=== PATIENT | male | born 1975 | race Caucasian/White ===

== ENCOUNTER 2017-06-22 10:58 | Inpatient (IN) | payer OTHER ==
[~2017-06-22] VITALS: Ht 175.3 cm; Wt 71.0 kg
--- NOTE | ~2017-06-22 | CR72 ---
[facility] A Service of [facility] RADIOLOGY TEXT RESULTS PATIENT: EDIL VICKERS LOCATION: [facility] 330-01 : [birth year] UNIT #: [id number] AGE: [address]: Isaias Russell MD SEX: M ORDER DR: [id number] [facility] [address] [place], [place] [address] [id number] E MR#: [id number] Acc #: [id number] NAME: EDIL VICKERS : 1975 SEX: M STUDY DATE/TIME: 06/22/2017 12:08 UNIT: [facility] ROOM: STUDY DESCRIPTION: CR Chest Single View Portable Attending Physician: William Nugent M.D. Ordering Physician: William Nugent M.D. Primary Care Physician: No Primary Care Physician MEDICAL IMAGING REPORT This report is preliminary unless electronic signature is present EXAM Portable chest. HISTORY Shortness of breath onset today. TECHNIQUE Single AP view of the chest was obtained. FINDINGS A single AP view of the chest shows both lungs to be clear. The heart is normal in size. The mediastinal contour is normal. No significant bone abnormalities are seen. IMPRESSION Normal single view chest. Dictated by... Edil Clemons M.D. THIS IS AN ELECTRONICALLY VERIFIED REPORT Edil Clemons M.D. at 06/27/2017 2:13 PM ELVIRA/suellen TD: 06/22/2017 17:20 JOB #: [id number] MEDICAL IMAGING REPORT Page 1 of 1 COPY
--- NOTE | ~2017-06-22 | DS ---
Unit #: [id number] #: [id number] Patient: EDIL VICKERS [id number] [address] [address] [id number] I MR#: [id number] NAME: EDIL VCIKERS ROOM: 330 Age: 41 Sex: M Admission Date: 06/22/2017 : 1975 Discharge Date: 06/24/2017 Attending Physician: Isaias Russell M.D. Primary Care Physician: No Primary Care Physician DISCHARGE SUMMARY DISCHARGE DIAGNOSES 1. Urinary tract infections. 2. Psychosis. The patient is a 41-year-old male admitted 06/22/2017 with psychosis. He was noted to have tox screen positive for amphetamines. The patient had apparently taken himself to a bank and asked for someone to contact the police. He was then brought to the emergency department. CT of the head shows no acute findings. UA shows possible urinary tract infection and the patient does complain of some dysuria. Patient received an IV dose of Rocephin and will be discharged on Bactrim. The patient does remain frankly psychotic. He has episodes where he threatens to eat people but has otherwise been nonviolent. Given medical stability the patient is being discharged to [facility] at this time. DISCHARGE MEDICATIONS 1. Bactrim DS one p.o. b.i.d. x5 days. 2. Ativan 1 mg p.o. b.i.d. 3. Zyprexa 10 mg p.o. b.i.d. FOLLOWUP The [facility] has [facility] Appropriate followup can be determined upon discharge from that facility. Dictated by... Brigette Bowden/nathaniel TD: 06/26/2017 09:43 JOB #: [id number] Unit #: [id number] #: [id number] Patient: EDIL VICKERS DISCHARGE SUMMARY Page 1 of 1 X Isaias Russell MD DISCHARGE SUMMARY
--- NOTE | ~2017-06-22 | EKG ---
PATIENT: EDIL VICKERS UNIT #: [id number] Ventricular Rate: 96 BPM Atrial Rate: 96 BPM P-R Interval: 138 ms QRS Duration: 92 ms Q-T Interval: 394 ms QTC Calculation(Bezet): 497 ms P Kiana: 73 degrees Calculated R Kiana: 39 degrees Calculated T Kiana: 54 degrees Diagnosis Line: Normal sinus rhythm Diagnosis Line: nondiagnostic Q waves inferolateral leads Diagnosis Line: Borderline ECG Diagnosis Line: No previous ECGs available Diagnosis Line: Confirmed by YADI TEE MD ([id number]) on 06/22/2017 Diagnosis Line: 6:57:02 PM INTERPRETING MD: NAY MUNOZ
--- NOTE | ~2017-06-22 | CO ---
Unit #: [id number] #: [id number] Patient: EDIL VICKERS [id number] [facility] [address] [place], [place] [address] [id number] I MR#: [id number] NAME: EDIL VICKERS ROOM: 330 Age: 41 Sex: M Admission Date: 06/22/2017 : 1975 Attending Physician: Isaias Russell M.D. Consultation Date: 06/23/2017 CONSULTATION REPORT REASON FOR CONSULTATION Psychosis, altered mental status, and hearing voices. HISTORY OF PRESENT ILLNESS Mr. Lea is a 41-year-old male, seen in room 330, bed 1 on 06/23/2017 at [facility]. The patient reported racing thoughts, hearing voices. The patient reported history of amphetamine abuse. The patient currently denied any suicidal or homicidal ideation, but still guarded, paranoid, mood lability, sad and depressed. The patient's vital signs; temperature 97.9, 58, 99/56 and oxygen saturation 99%. PAST PSYCHIATRIC HISTORY Remarkable for history of previous treatment, details unknown at this time; long history of hearing voices before using substances according to the patient. MEDICAL HISTORY Remarkable for history of hepatitis C. MEDICATION HISTORY The patient is on no medication at this time except IV fluids. FAMILY HISTORY AND SOCIAL HISTORY The patient has a poor support system. No history of abuse. History of substance abuse as mentioned above. Drug of choice, amphetamine. REVIEW OF SYSTEMS Complete review of systems is unremarkable. MENTAL STATUS EXAMINATION General appearance, the patient dressed casually in hospital attire. Attention span and concentration, poor. Speech is rapid in rate, pressured. Oriented in time, place, and person. Mood and affect, labile. Thought process, circumstantial. Thought content, guarded, paranoid, passive SI, but denied any plans. Recent and remote memory, fair to slightly impaired. Language, fair. Fund of knowledge, fair. Insight and judgment, fair to slightly impaired. DIAGNOSES Psychiatric: Bipolar mood disorder, recurrent, severe, depressed, F31.9; psychosis, not otherwise specified, F29.0; amphetamine use disorder, severe, F15.20. Secondary diagnosis: Deferred. Unit #: [id number] #: [id number] Patient: EDIL VICKERS Medical diagnosis: None. Stressors: Psychosocial stressors. ASSESSMENT/PLAN 1. Supportive psychotherapy and psychoeducation provided to the patient. 2. Educated about benefits and side effects of medication and course and prognosis of illness. 3. Recommending to start Zyprexa 10 mg b.i.d. for above-mentioned symptom one dose now and Ativan 1 mg twice daily. We will continue to follow. Please feel free to call if any question, telephone #[phone]. Dictated by... Brigette Rivera/bobby TD: 06/24/2017 14:21 JOB #: [id number] CONSULTATION REPORT Page 1 of 1 X Micah Lennon MD X CONSULTATION REPORT
--- NOTE | ~2017-06-22 | CT71 ---
[facility] A Service of [facility] RADIOLOGY TEXT RESULTS PATIENT: EDIL VICKERS LOCATION: [facility] 330 : [birth year] UNIT #: [id number] AGE: [address]: Isaias Russell MD SEX: M ORDER DR: [id number] [facility] [address] [facility]. [place], [place] [address] [id number] I MR#: [id number] Acc #: [id number] NAME: EDIL VICKERS : 1975 SEX: M STUDY DATE/TIME: 06/22/2017 14:40 UNIT: A PCU ROOM: 330 STUDY DESCRIPTION: CT Head Wo Contrast Attending Physician: Maura Collins M.D. Ordering Physician: William Nugent M.D. Primary Care Physician: Primary Care Physician No MEDICAL IMAGING REPORT This report is preliminary unless electronic signature is present EXAM CT head INDICATIONS Confusion for 1 day. Not responding to commands. Temporary encephalopathy. COMPARISON None available. TECHNIQUE Axial noncontrast images were obtained from the skull base to the vertex. This CT exam was performed with one or more of the following radiation dose reduction techniques: automatic exposure control, adjustment of mA and/or kV according to patient size, and iterative reconstruction. FINDINGS Ventricular size and configuration are normal. There is no evidence of acute infarct or hemorrhage. There are no extraaxial fluid collections. No mass lesion or mass effect is seen. There are no skull fractures. IMPRESSION Normal noncontrast head CT. Dictated by... Lisandro Pollard M.D. THIS IS AN ELECTRONICALLY VERIFIED REPORT Lisandro Pollard M.D. at 06/23/2017 8:21 AM [facility]/to TD: 06/22/2017 22:23 JOB #: [id number] [facility] A Service [facility] RADIOLOGY TEXT RESULTS PATIENT: EDIL VICKERS LOCATION: [facility] 330 : [birth year] UNIT #: [id number] AGE: [address]: Isaias Russell MD SEX: M ORDER DR: MEDICAL IMAGING REPORT Page 1 of 1 COPY
--- NOTE | ~2017-06-22 | HP ---
Unit #: [id number] #: [id number] Patient: EDIL VICKERS [id number] [address] [facility] [place], [place] [address] [id number] E MR#: [id number] NAME: EDIL VICKERS ROOM: Age: 41 Sex: M Admission Date: 06/22/2017 : 1975 Attending Physician: William Nugent M.D. HISTORY AND PHYSICAL CHIEF COMPLAINT Altered mental status. HISTORY OF PRESENT ILLNESS The patient is a 41-year-old male with a past medical history of hepatitis C who presented to the emergency department for evaluation of the above. History is obtained from chart review and discussion with ER staff due to the patient's altered mental status. Apparently, the patient went to a bank asking for the police. He was subsequently agitated and combative and was brought to the emergency department for further evaluation. In the emergency department, initial pulse and blood pressure were 107 and 139/98, respectively. The patient required security intervention due to aggressive behaviors. Ultimately, he received 20 mg of Geodon, as well as 2 mg of [address]. A CT of the head shows nothing acute. Laboratory is notable for potassium of 2.2. He was given 40 mEq of potassium IV in the emergency department. He is being admitted to [facility] for evaluation and further treatment. PAST MEDICAL HISTORY The patient has two other emergency department visits both of which were for abdominal pain in July 2015. The ER triage sheet states that he has a history of hepatitis C. PAST SURGICAL HISTORY Unknown. SOCIAL HISTORY Unobtainable due to mental status. FAMILY HISTORY Unobtainable due to mental status. REVIEW OF SYSTEMS Unobtainable due to altered mental status. PHYSICAL EXAMINATION VITAL SIGNS: Temperature is 97.5, pulse 105, respirations 20, blood pressure 139/98, and oxygen saturation is 92% on room air. GENERAL: Patient is a male who is lethargic. He was previously agitated and combative. HEENT: Head is atraumatic. Mucous membranes are moist. NECK: Supple. Trachea is midline. Unit #: [id number] #: [id number] Patient: EDIL VICKERS CARDIOVASCULAR: Regular rate and rhythm. LUNGS: Clear to auscultation bilaterally with no increased work of breathing. ABDOMEN: Soft and nontender with bowel sounds present in all four quadrants. EXTREMITIES: Nontender with no pedal edema. NEUROLOGIC: Patient is lethargic. He was moving all extremities. PSYCHIATRIC: Patient was initially agitated and combative. SKIN: Skin of examined areas is warm and dry. DIAGNOSTIC STUDIES LABORATORY: Complete blood count notable for hemoglobin of 16.2. Comprehensive metabolic panel notable for potassium of 2.2, glucose 140, BUN and creatinine 24 and 1.1, respectively, AST and ALT are 71 and 65, respectively, total bilirubin 2.1 with 0.7 direct and 1.4 indirect. Alcohol level is 5. Urine toxicology screen is positive for amphetamine. Urinalysis notable for 1+ leukocyte esterase, 2+ protein, 1+ ketones, and 3+ blood with 50-100 red blood cells and 10-25 white blood cells. IMAGING: CT of the head shows nothing acute. CARDIOLOGY: EKG shows normal sinus rhythm with a rate of 96 beats per minute. ASSESSMENT The patient is a 41-year-old male with: 1. Altered mental status secondary to #2. 2. Amphetamine abuse/intoxication. 3. Hypokalemia with a potassium of 2.2. The patient received 40 mEq of potassium IV in the emergency department. 4. Possible urinary tract infection. The patient has 1+ leukocyte esterase with 10-25 white blood cells. 5. History of hepatitis C. PLAN 1. Admit to intermediate level. 2. N.p.o. until awake and passes bedside swallow. 3. Normal saline at 125 mL/hour. 4. Check magnesium level. 5. Potassium/magnesium protocol. 6. TSH, B12, and folate. 7. Neuro checks. 8. Sitter. 9. Consult Dr. Lennon regarding altered mental status. 10. Check CPK. 11. Urine culture and sensitivity on urine in the lab. 12. Rocephin 1 gram IV daily pending results of urine culture. 13. Repeat labs in the morning including magnesium and CPK. 14. SCDs for DVT prophylaxis. 15. Additional workup and consultants based on above. 1. Dictated by Maura Collins M.D. AW/brad TD: 06/22/2017 16:54 Unit #: [id number] #: [id number] Patient: EDIL VICKERS JOB #: [id number] HISTORY AND PHYSICAL Page 1 of 1 X Maura Collins MD HISTORY AND PHYSICAL
[~2017-06-22 10:58] MED LIST: BENTYL20 M1 PO; CIPRO PO; FLAGYL250 M1 PO; NO MEDICATIONS; ZOFRAN ODT4 MG/UDTAB PO
[2017-06-22 12:18] LABS: BASOPHIL% 0.5 % (0-2.5); DIFF IND NO; EOSINOPHIL% 0.3 % (0.0-7.0); HEMATOCRIT 47.9 % (38.0-50.0); HEMOGLOBIN 16.2 gm/dL (13.0-16.0); LYMPHOCYTE# 1.7 X10e3 (1.0-3.5); LYMPHOCYTE% 21.6 % (17.0-45.0); MEAN CELL VOLUME 90.6 FL (83-96); MEAN CORPUSCULAR HEMOGLOBIN 30.6 PG (28-34); MEAN CORPUSCULAR HGB CONC 33.7 g/dL (30-36); MEAN PLATELET VOLUME 10.1 FL (6.5-11.5); MONOCYTE# 0.9 X10e3 (0-1.0); MONOCYTE% 11.3 % (3.0-12.0); NEUTROPHIL# 5.3 X10e3 (1.5-7.1); NEUTROPHIL% 66.3 % (40-75); PLATELET COUNT 193 X10e3 (140-420); RED BLOOD COUNT 5.28 X10e (3.90-5.60)
[2017-06-22 12:45] LABS: ALBUMIN SERUM 4.5 g/dL (3.5-5.0); BILIRUBIN, DIRECT 0.7 mg/dL (0.0-0.2); BILIRUBIN,INDIRECT 1.4 mg/dL (0.0-0.9); BILIRUBIN,TOTAL 2.1 mg/dL (0.2-2.0); BUN/CREATININE RATIO 21.81; CALCIUM SERUM 9.3 mg/dL (8.4-10.2); CREATININE SERUM 1.1 mg/dL (0.6-1.4); GLOM FILT RATE Estimated 83.5 mL/min (>60); PROTEIN TOTAL SERUM 7.9 g/dL (6.0-8.3)
[2017-06-22 12:49] LABS: POTASSIUM 2.2 mmol/L (3.5-5.1)
[2017-06-22 12:53] LABS: URINE SOURCE CLEAN CATCH
[2017-06-22 13:03] LABS: URINE APPEARANCE CLOUDY; URINE BLOOD 3+ (NEG); URINE COLOR DK YELLOW; URINE GLUCOSE NEG (NEG); URINE KETONE 1+ (NEG); URINE LEUKOCYTE ESTERASE 1+ (NEG); URINE NITRATE NEG (NEG); URINE PH 5.5 (5-8); URINE PROTEIN 2+ (NEG); URINE SPECIFIC GRAVITY 1.031 (1.003-1.035)
[2017-06-22 13:06] LABS: CULTURE INDICATED? YES; URINE BACTERIA AUWI NEG (NEGATIVE)
[2017-06-22 13:27] LABS: AMPHETAMINE POS (NEG); BARBITURATES NEG (NEG); BENZODIAZEPINES NEG (NEG); COCAINE NEG (NEG); MARIJUANA NEG (NEG); OPIATES NEG (NEG); TRICYCLIC ANTIDEPRESSANTS NEG (NEG); U METHADONE NEG (NEG)
[2017-06-22 13:36] LABS: URBCS1 AUWI 50-100 /[HPF] (0-2); URINE BILIRUBIN POS (NEG); URINE SQUAMOUS EPITHELIAL CELL OCCAS /[HPF]
[2017-06-22 17:11] LABS: FOLATE (FOLIC ACID) >23.3 ng/mL (>5.8)
[2017-06-23 06:04] LABS: HEMATOCRIT 44.5 % (38.0-50.0); HEMOGLOBIN 14.9 gm/dL (13.0-16.0); MEAN CELL VOLUME 91.5 FL (83-96); MEAN CORPUSCULAR HEMOGLOBIN 30.7 PG (28-34); MEAN CORPUSCULAR HGB CONC 33.5 g/dL (30-36); MEAN PLATELET VOLUME 10.8 FL (6.5-11.5); RED BLOOD COUNT 4.86 X10e (3.90-5.60); RED CELL DISTRIBUTION WIDTH 14.2 % (11.0-15.5); WHITE BLOOD COUNT 6.7 X10e3 (4.0-10.5)
[2017-06-23 07:39] LABS: ALBUMIN SERUM 3.6 g/dL (3.5-5.0); BILIRUBIN,TOTAL 2.7 mg/dL (0.2-2.0); CALCIUM SERUM 8.8 mg/dL (8.4-10.2); CREATININE SERUM 0.6 mg/dL (0.6-1.4); GLOM FILT RATE Estimated 125.8 mL/min (>60); POTASSIUM 4.3 mmol/L (3.5-5.1); PROTEIN TOTAL SERUM 6.5 g/dL (6.0-8.3)
== END 2017-06-24 13:52 | DRG 689 ==
LOC: CED 10:58 → CEDOF 15:30 → CED 15:43 → C3A PCU 20:47 → CEDOF 20:47 → C3A PCU 06-23 07:43
PROVIDERS: Emergency Medicine; Family Medicine
DX: N39.0 Urinary tract infection, site not specified (principal); G92 Toxic encephalopathy; F15.120 Other stimulant abuse with intoxication, uncomplicated; F29 Unspecified psychosis not due to a substance or known physiological condition; E87.6 Hypokalemia; F31.9 Bipolar disorder, unspecified; Z86.19 Personal history of other infectious and parasitic diseases; T43.621A Poisoning by amphetamines, accidental (unintentional), initial encounter; Y92.009 Unspecified place in unspecified non-institutional (private) residence as the place of occurrence of the external cause
CPT/HCPCS: 36415; 51702; 70450; 71010; 80048; 80053; 80076; 80307; 81003; 82550; 82607; 82746; 82947; 83735; 84443; 85025; 85027; 87086; 93005; 96365; 96372; 96375; 99285; G0480; J0696; J2250; J3475; J3486

== ENCOUNTER 2017-06-23 11:21 | Inpatient (IN) | payer OTHER ==
[~2017-06-23] VITALS: Ht 175.3 cm; Wt 74.8 kg
--- NOTE | ~2017-06-23 | PN ---
Unit #: [id number] #: [id number] Patient: EDIL VICKERS [id number] [facility] [address] [place] [address] [id number] I MR#: [id number] NAME: EDIL VICKERS ROOM: P180 Age: 41 Sex: M Admission Date: 06/24/2017 : 1975 Attending Physician: Micah Lennon M.D. Admitting Physician: Micah Lennon M.D. Primary Care Physician: Primary Care Physician Lien HARKINS NOTES DATE OF SERVICE: 06/25/2017 DISCUSSION Mr. Lea is a 41-year-old male, seen on 06/25/2017. The patient interviewed, chart reviewed, and obtained information from nursing staff. The patient was compliant and cooperative. Mood is sad, dysphoric, withdrawn, isolative, guarded, and paranoid. REVIEW OF SYSTEMS Complete review of systems unremarkable. MENTAL STATUS EXAMINATION General appearance, the patient dressed casually. Attention span and concentration, fair. Oriented in place and person. Mood and affect, labile. Speech, monotone. Thought process, concrete. The patient reported hallucination, anxiety, isolative, guarded, and paranoid. Recent and remote memory, poor. Insight and judgment, poor. DIAGNOSES Amphetamine use disorder, severe; mood disorder, not otherwise specified; and psychosis, not otherwise specified. ASSESSMENT AND PLAN Advised to continue with current medication and therapeutic protocol. If needed, consider further adjustment of medication. Dictated by... Brigette Rivera/bobby TD: 06/26/2017 13:33 JOB #: [id number] Unit #: [id number] #: [id number] Patient: EDIL VICKERS PROGRESS NOTES Page 1 of 1 X Micah Lennon MD PROGRESS NOTE
--- NOTE | ~2017-06-23 | PN ---
Unit #: [id number] #: [id number] Patient: EDIL VICKERS [id number] [facility] [address] [place] [address] [id number] I MR#: [id number] NAME: EDIL VICKERS ROOM: P180 Age: 41 Sex: M Admission Date: 06/24/2017 : 1975 Attending Physician: Micah Lennon M.D. Admitting Physician: Micah Lennon M.D. Primary Care Physician: Primary Care Physician Lien HARKINS NOTES DATE OF SERVICE: 06/27/2017 DISCUSSION Edil Miller is a 41-year-old male, seen on 06/27/2017. The patient interviewed, chart reviewed, and obtained information from nursing staff. The patient was compliant and cooperative. Mood labile. The patient sad, dysphoric, flat affect, guarded. The patient still reporting having withdrawal symptoms. The patient's vital signs; temperature 98.4, heart rate 68, and blood pressure 115/77. The patient is still seclusive and isolative. REVIEW OF SYSTEMS Complete review of systems unremarkable. MENTAL STATUS EXAMINATION General appearance, the patient dressed casually. Attention span and concentration, fair. Oriented in place and person. Mood and affect, labile. Speech, monotone. Thought process, concrete. The patient denied any thoughts of harming self or others, but isolative, argumentative, disrespectful, guarded, and rude. DIAGNOSES Amphetamine use disorder, severe and mood disorder, not otherwise specified. ASSESSMENT AND PLAN Advised to continue with current medication and therapeutic protocol. If needed, consider further adjustment of medication. Dictated by... Brigette Rivera/bobby TD: 06/27/2017 19:50 JOB #: [id number] Unit #: [id number] #: [id number] Patient: EDIL VICKERS [place] SHAHANA NOTES Page 1 of 1 X Micah Lennon MD PROGRESS NOTE
--- NOTE | ~2017-06-23 | PN ---
Unit #: [id number] #: [id number] Patient: EDIL VICKERS [id number] [facility] [address] [place] [address] [id number] I MR#: [id number] NAME: EDIL VICKERS ROOM: P180 Age: 41 Sex: M Admission Date: 06/24/2017 : 1975 Attending Physician: Micah Lennon M.D. Admitting Physician: Micah Lennon M.D. Primary Care Physician: Primary Care Physician Lien HARPER PROGRESS NOTES DATE 06/26/2017 DISCUSSION Edil Vickers is a 41-year-old male, seen on 06/26/2017. The patient interviewed, chart reviewed, and obtained information from the nursing staff. The patient continues to report having withdrawal symptoms, isolative, flat affect. The patient's vital signs, 98.1, 71, and 101/64. The patient denied any other complaints. REVIEW OF SYSTEMS Complete review of systems unremarkable. MENTAL STATUS EXAMINATION General appearance: Patient dressed casually. Attention span and concentration, fair. Oriented in time, place, and person. Mood and affect, labile. Speech, monotone. Thought process, concrete. The patient denied any thoughts of harming self or others or any psychotic symptoms. Recent and remote memory, poor. Insight and judgment, poor. DIAGNOSES 1. Amphetamine use disorder, severe. 2. Mood disorder, NOS. ASSESSMENT/PLAN Advised to continue with the current medication and therapeutic protocol, and if needed consider further adjustment of medication. Dictated by... Brigette Rivera/kayli TD: 06/27/2017 09:36 JOB #: [id number] Unit #: [id number] #: [id number] Patient: EDIL VICKERS PROGRESS NOTES Page 1 of 1 X Micah Lennon MD PROGRESS NOTE
--- NOTE | ~2017-06-23 | PA ---
Unit #: [id number] #: [id number] Patient: EDIL VICKERS [id number] [facility] [address] [place] [address] [id number] I MR#: [id number] NAME: EDIL VICKERS ROOM: 80 Age: 41 Sex: M Admission Date: 06/24/2017 : 1975 Date of Assessment: 06/25/2017 Attending Physician: Micah Lennon M.D. Admitting Physician: Micah Lennon M.D. Primary Care Physician: Primary Care Physician No PSYCHIATRIC ASSESSMENT INFORMANTS The patient reliability, fair informant and chart reliability, good. CHIEF COMPLAINT Substance abuse and withdrawal. HISTORY OF PRESENT ILLNESS Mr. Edil Vickers is a 41-year-old male, presented with the above-mentioned complaint. The patient reported use of amphetamine and hallucinations. The patient reported tobacco use, age of onset 14; LSD, age of onset 25; opioid, age of onset 37; and amphetamine, age of onset 37. Longest period of sobriety 1 week. Last period of sobriety in 02/2017. The patient reported a history of blackout, hepatitis, and IV drug use. Reported feeling paranoid. The patient was initially admitted with altered mental status and increase in paranoia. The patient has been using LSD and amphetamine for years. The patient reports also abusing heroin. The patient also experiencing auditory hallucination. Reported that he thinks that the people are talking about him. This makes him want to harm people. The patient reported decreased sleep. Needing inpatient admission at this time for psychiatric stabilization. PAST PSYCHIATRIC HISTORY Remarkable for history of inpatient treatment at [facility] in 2017 and history of [facility] inpatient for CD. FAMILY HISTORY AND SOCIAL HISTORY The patient lives alone. Poor support system. Family psychiatric illness is remarkable for history of bipolar disorder in mother and substance abuse disorder in uncle and aunt. The patient denied any current legal charges, but in the past drug-related charges and assault. The patient denied any history of any physical abuse, sexual abuse, or emotional abuse. MEDICAL HISTORY Remarkable for history of hepatitis C, UTI, and back pain. MEDICATION HISTORY None. ALLERGIES No known drug allergies. SUBSTANCE ABUSE HISTORY Please see above. Unit #: [id number] #: [id number] Patient: EDIL VICKERS REVIEW OF SYSTEMS HEENT: Eyes, clear. Ears, nose, mouth, and throat; clear. CARDIOVASCULAR: Unremarkable. RESPIRATORY: Unremarkable. GI: Unremarkable. : Unremarkable. SKIN: Unremarkable. LYMPH NODE: Unremarkable. NEUROLOGIC: Unremarkable. ENDOCRINE: Unremarkable. HEMATOLOGIC: Unremarkable. ALLERGIC/IMMUNOLOGIC: Unremarkable. MUSCULOSKELETAL: Muscle strength and tone, no atrophy or abnormal movement. Gait normal. MENTAL STATUS EXAMINATION CONSTITUTIONAL: Measurement of vital signs; temperature 98.4, heart rate 60, respiratory rate 19, oxygen saturation 99%, and blood pressure 89/54. Height 5 feet 9 inches and weight 165 pounds. GENERAL APPEARANCE: The patient dressed casually. The patient did not show any facial deformity. MUSCULOSKELETAL: Please see above. PSYCHIATRIC EXAMINATION Description of speech; regular rate, normal volume, normal articulation, and coherent. Description of thought process, goal directed. Description of association, intact. Description of abnormal psychotic thinking; the patient reported hallucination, thoughts of harming other people, and suicidal ideation. Description of the patient's judgment: Concerning everyday activity, poor. Social situation, poor. Concerning psychiatric condition, poor. Complete mental status examination; oriented in time, place, and person. Recent and remote memory, fair. Attention span and concentration, fair. Language, able to name object and repeat phrases. Fund of knowledge, aware of current event and passive vocabulary intact. Mood and affect, sad and dysphoric. Insight and judgment, fair to poor. ASSETS AND LIABILITIES Assets, the patient is articulate and able to take care of his ADL. Liability, history of substance abuse and depression. ADMITTING DIAGNOSES Psychiatric: Amphetamine use disorder, severe, F15.20; mood disorder, not otherwise specified, F32.9; and psychosis, not otherwise specified, F29.0. Secondary diagnosis: Deferred. Medical diagnosis: History of hepatitis C. Stressors: Psychosocial stressors. PSYCHIATRIC PLAN AND TREATMENT GOAL AND DISCHARGE PLAN 1. Advised to admit the patient on the inpatient unit. Provide safe, supportive, and structured environment. 2. Ordered labs; CBC, CMP, UA, and UDS. 3. Advised Zyprexa 10 mg b.i.d. for psychosis and mood stabilization. Unit #: [id number] #: [id number] Patient: ALEEEDIL The patient to start with detox monitoring and detox protocol. Precaution for psychosis. The patient to attend group therapy, individual therapy, and chemical dependency group. Treatment goal to attain euthymic mood, gain insight into his problem, and learn coping skills. DISCHARGE PLAN Plan to stabilize the patient and consider followup in outpatient program. ESTIMATED LENGTH OF STAY 3 to 5 days. Dictated by... Brigette Rivera/bobby TD: 06/25/2017 18:23 JOB #: [id number] PSYCHIATRIC ASSESSMENT Page 1 of 1 X Micah Lennon MD X PSYCHIATRIC ASSESSMENT
--- NOTE | ~2017-06-23 | HP ---
Unit #: [id number] #: [id number] Patient: EDIL VICKERS [id number] [facility] [address] [place] [address] [id number] I MR#: [id number] NAME: EDIL VICKERS ROOM: P180 Age: 41 Sex: M Admission Date: 06/24/2017 : 1975 Attending Physician: Mciah Lennon M.D. Admitting Physician: Mciah Lennon M.D. Primary Care Physician: Primary Care Physician No HISTORY AND PHYSICAL The patient is a 41-year-old male admitted to [facility] on 06/24/2017 for methamphetamine abuse and psychosis. The patient had a recent admission to [facility] where a full history and physical was completed on 06/22/2017. That history and physical has been reviewed. No changes need to be made. Dictated by... Yvon Luke/constanza TD: 06/26/2017 00:18 JOB #: [id number] HISTORY AND PHYSICAL Page 1 of 1 X JONH MALLORY APRN HISTORY AND PHYSICAL
--- NOTE | ~2017-06-23 | DS ---
Unit #: [id number] #: [id number] Patient: EDLI VICKERS [id number] [facility] [address] [place] [address] [id number] MR#: [id number] NAME: EDIL VICKERS ROOM: 80 Age: 41 Sex: M Admission Date: 06/24/2017 : 1975 Discharge Date: 06/28/2017 Attending Physician: Micah Lennon M.D. Primary Care Physician: Primary Care Physician No DISCHARGE SUMMARY REASON FOR ADMISSION Substance abuse. DIAGNOSTIC STUDIES LABORATORY RESULTS: Urine drug screen positive for amphetamine. HOSPITAL COURSE The patient was admitted to inpatient unit on 06/24/2017 and discharged on 06/28/2017. The patient was treated with group therapy, individual therapy, chemical dependency group, and detox. The patient was responsive to treatment and showed improvement. Subsequently, the patient was discharged with a plan to follow up in outpatient program. DISCHARGE MEDICATIONS Zyprexa 10 mg at bedtime for mood stabilization. DISCHARGE DIAGNOSES Psychiatric: Amphetamine use disorder, severe, F15.20; mood disorder, not otherwise specified, F32.9; and rule out bipolar mood disorder, not otherwise specified. Secondary diagnosis: Deferred. Medial diagnosis: History of hepatitis C. Stressors: Psychosocial stressors. DISCHARGE INSTRUCTIONS The patient to follow up in outpatient clinic as per public health social worker. CONDITION ON DISCHARGE The patient was pleasant and cooperative. Denied any psychotic symptom or any suicidal ideation. PROGNOSIS Guarded. DIET AND ACTIVITY As tolerated. Dictated by... Micah Lennon M.D. Unit #: [id number] #: [id number] Patient: EDIL VICKERS SZC/modl TD: 06/28/2017 17:56 JOB #: [id number] DISCHARGE SUMMARY Page 1 of 1 X Micah Lennon MD X DISCHARGE SUMMARY
[2017-06-25 11:18] LABS: BILIRUBIN,TOTAL 0.5 mg/dL (0.2-2.0); CALCIUM SERUM 8.5 mg/dL (8.4-10.2); CREATININE SERUM 0.7 mg/dL (0.6-1.4); GLOM FILT RATE Estimated 118.1 mL/min (>60); PROTEIN TOTAL SERUM 5.4 g/dL (6.0-8.3)
[2017-06-25 11:50] LABS: BASOPHIL% 1.2 % (0-2.5); EOSINOPHIL# 0.2 X10e3 (0-0.7); EOSINOPHIL% 4.9 % (0.0-7.0); HEMOGLOBIN 14.1 gm/dL (13.0-16.0); LYMPHOCYTE# 1.7 X10e3 (1.0-3.5); LYMPHOCYTE% 43.9 % (17.0-45.0); MEAN CELL VOLUME 92.7 FL (83-96); MEAN CORPUSCULAR HEMOGLOBIN 30.4 PG (28-34); MEAN CORPUSCULAR HGB CONC 32.8 g/dL (30-36); MEAN PLATELET VOLUME 11.8 FL (6.5-11.5); MONOCYTE# 0.3 X10e3 (0-1.0); MONOCYTE% 8.6 % (3.0-12.0); NEUTROPHIL# 1.6 X10e3 (1.5-7.1); NEUTROPHIL% 41.4 % (40-75); PLATELET COUNT 151 X10e3 (140-420); RED BLOOD COUNT 4.64 X10e (3.90-5.60); RED CELL DISTRIBUTION WIDTH 14.4 % (11.0-15.5); WHITE BLOOD COUNT 3.8 X10e3 (4.0-10.5)
[2017-06-25 11:52] LABS: DIFF IND NO
== END 2017-06-28 13:50 | disposition home or self-care (01) | DRG 897 ==
LOC: P1E 06-24 14:39
PROVIDERS: Psychiatry & Neurology Psychiatry
PROC: HZ2ZZZZ Detoxification Services for Substance Abuse Treatment (ICD-10-PCS; principal; 2017-06-25)
DX: F15.20 Other stimulant dependence, uncomplicated (principal); F39 Unspecified mood [affective] disorder; B19.20 Unspecified viral hepatitis C without hepatic coma; F29 Unspecified psychosis not due to a substance or known physiological condition
CPT/HCPCS: 80053; 85025; 86592

== ENCOUNTER 2017-07-09 05:00 | Inpatient (IN) | payer OTHER ==
[~2017-07-09] VITALS: Ht 175.3 cm; Wt 74.8 kg
--- NOTE | ~2017-07-09 | PA ---
Unit #: [id number] #: [id number] Patient: EDIL VICKERS [id number] [facility] [address] [place] [address] [id number] I MR#: [id number] NAME: EDIL VICKERS ROOM: P207 Age: 41 Sex: M Admission Date: 07/09/2017 : 1975 Date of Assessment: Attending Physician: Micah Lennon M.D. Admitting Physician: Micah Lennon M.D. PSYCHIATRIC ASSESSMENT INFORMANTS The patient reliability, poor informant and chart reliability, good. CHIEF COMPLAINT Suicidal ideation. HISTORY OF PRESENT ILLNESS Mr. Edil Vickers is a 41-year-old male, well known to us from his previous admission on 06/24/2017. The patient presented with suicidal ideation with a plan to overdose on drugs. The patient was referred from [facility]. Reported suicidal ideation with a plan to overdose. Reported recently overdosed on meth and was taken to [facility]. The patient stated "my plans to overdose are not working." The patient reports that he hears and sees things everyday. The patient reported unable to say what he sees or hears things. The patient reported decreased appetite and sleep, sad, and depressed. Needing inpatient admission at this time for psychiatric stabilization. The patient became agitated and was given Haldol 10 mg, Cogentin 1 mg, and Ativan 1 mg. Code was called, agitated and aggressive. The patient admitted using tobacco, age of onset 14; LSD, age of onset 25; opioid, age of onset 37; and amphetamine, age of onset 37. Longest period of sobriety 30 days. Last period of sobriety 5 months ago. Denied any blackout, HIV, hepatitis, withdrawal symptom, or IV drug use. PAST PSYCHIATRIC HISTORY Remarkable for history of previous treatment in 06/2017. History of inpatient treatment at [facility] in 2017. History of [facility] inpatient for CD. FAMILY HISTORY AND SOCIAL HISTORY The patient lives alone. Poor support system. Family psychiatric illness is remarkable for history of bipolar mood disorder in mother and substance abuse disorder in uncle and aunt. The patient denied any history of any legal charges, but drug-related charges in the past and for assault. The patient denied any history of physical abuse, sexual abuse, or emotional abuse. MEDICAL HISTORY Remarkable for history of hepatitis C, UTI, and back pain. MEDICATION HISTORY None. Unit #: [id number] #: [id number] Patient: EDIL VICKERS ALLERGIES No known drug allergies. SUBSTANCE ABUSE HISTORY Please see above. REVIEW OF SYSTEMS HEENT: Eyes, clear. Ears, nose, mouth, and throat; clear. CARDIOVASCULAR: Unremarkable. RESPIRATORY: Unremarkable. GI: Unremarkable. : Unremarkable. SKIN: Unremarkable. LYMPH NODE: Unremarkable. NEUROLOGIC: Unremarkable. ENDOCRINE: Unremarkable. HEMATOLOGIC: Unremarkable. ALLERGIC/IMMUNOLOGIC: Unremarkable. MUSCULOSKELETAL: Muscle strength and tone, no atrophy or abnormal movement. Gait normal. MENTAL STATUS EXAMINATION CONSTITUTIONAL: Measurement of vital signs; temperature 98.2, heart rate 77, respiratory rate 16, and blood pressure 128/77. Height 5 feet 9 inches and weight is 165 pounds. GENERAL APPEARANCE: The patient dressed casually. No facial deformity noted. MUSCULOSKELETAL: Please see above. PSYCHIATRIC EXAMINATION Description of speech, rapid and circumstantial. Description of thought process, circumstantial. Description of association, guarded and paranoid. Description of abnormal psychotic thinking; guarded, paranoid, mood lability, agitation, and aggression. Reporting suicidal ideation and substance abuse. Description of the patient's judgment: Concerning everyday activity, poor. Social situation, poor. Concerning psychiatric condition, poor. Complete mental status examination; oriented in time, place, and person. Recent and remote memory, fair. Attention span and concentration, fair. Language, fair. Fund of knowledge, average. Vocabulary, fair. Mood and affect, labile. Insight and judgment, poor. ASSETS AND LIABILITIES Assets, the patient is articulate and able to take care of his ADL. Liability; history of depression, aggression, and substance abuse. ADMITTING DIAGNOSES Psychiatric: Major depressive disorder, recurrent, severe, F33.2; amphetamine use disorder, severe, F15.20; and psychosis, not otherwise specified, F29.0. Secondary diagnosis: Deferred. Medical diagnosis: History of hepatitis C. Stressors: Psychosocial stressors. Unit #: [id number] #: [id number] Patient: EDIL VICKERS PSYCHIATRIC PLAN AND TREATMENT GOAL AND DISCHARGE PLAN 1. Advised to admit the patient on the inpatient unit. Provide safe, supportive, and structured environment. 2. Ordered labs; CBC, CMP, UA, and UDS. 3. Advised to start the patient on Zyprexa 10 mg b.i.d. for psychosis. The patient was given one time dose of Haldol 10, Cogentin 1, and Ativan 1 mg IM as the patient was agitated and code was called for safety. The patient to attend all the programing, group therapy, individual therapy, and chemical dependency group. Treatment goal to attain euthymic mood, gain insight into his problem, and learn coping skills. DISCHARGE PLAN Plan to stabilize the patient and consider followup in outpatient program. ESTIMATED LENGTH OF STAY 5 days. Dictated by... Micah Lennon M.D. MELANY/bobby TD: 07/09/2017 17:53 JOB #: [id number] PSYCHIATRIC ASSESSMENT Page 1 of 1 X Micah Lennon MD X PSYCHIATRIC ASSESSMENT
--- NOTE | ~2017-07-09 | HP ---
Unit #: [id number] #: [id number] Patient: EDIL VICKERS [id number] [facility] [address] [place] [address] [id number] I MR#: [id number] NAME: EDIL VICKERS ROOM: P207 Age: 41 Sex: M Admission Date: 07/09/2017 : 1975 Attending Physician: Micah Lennon M.D. Admitting Physician: Micah Lennon M.D. Primary Care Physician: Primary Care Physician No HISTORY AND PHYSICAL HISTORY OF PRESENT ILLNESS Patient is a 41-year-old male admitted to [address] [place] [address] on 07/09/2017 for auditory and visual hallucinations and for methamphetamine and heroin abuse. PAST MEDICAL HISTORY Patient was restrained at time of assessment so information was retrieved from the chart. PAST MEDICAL HISTORY 1. Hepatitis C. 2. Back pain. 3. UTI. 4. Leg abscess. 5. Rash. PAST SURGICAL HISTORY Unknown. SOCIAL HISTORY He works in a [email or web address] company. He lives alone. He uses a can of dip every two days and methamphetamine and heroin on a daily basis. FAMILY MEDICAL HISTORY Noncontributory. ALLERGIES No known drug allergies. CURRENT MEDICATIONS Patient is not on any home medications. REVIEW OF SYSTEMS Unable to answer questions about review of systems. PHYSICAL EXAM GENERAL: He is sedated but in no acute distress. VITAL SIGNS: Temperature 98.2, heart rate 77, respiration 16, blood pressure 128/77. HEIGHT: 5'9". WEIGHT: 165 pounds. SKIN: He has an abscess on his left leg and an abrasion to his right knee. HEENT: Normocephalic. TMs not viewed. Oral and nasal passages clear. Unit #: [id number] #: [id number] Patient: EDIL VICKERS Conjunctivae clear. PERRLA. EOMs intact. NECK: Supple without lymphadenopathy or thyromegaly. HEART: Regular rate and rhythm without murmur. LUNGS: Clear. ABDOMEN: Soft, nontender. : Not done. EXTREMITIES: No evidence of cyanosis, clubbing or edema. Moves all without focal deficit. NEUROLOGICAL: Grossly within normal limits. Cranial Nerves: II: Visual rand are intact. III, IV AND : Extraocular movements are intact. Pupils are equal, round and reactive to light. V: Facial sensation is grossly normal. VII: Facial movements and expression are normal. VIII: Auditory acuity grossly intact. IX, X: Uvula is midline. Phonation is normal. XI: Patient shrugs shoulders and turns head normally. XII: Tongue protrudes in the midline. Sensory and Motor Function: Sensory and motor sensation is grossly normal. Motor: moves all extremities well. IMPRESSION 1. Psychiatric admission. 2. Methamphetamine and heroin abuse. 3. Hepatitis C. 4. Back pain. RECOMMENDATIONS Psychiatric per psychiatrist. MEDICAL: No contraindication to participate in facility activities. MEDICAL PROGNOSIS fair. MEDICAL CONDITION Stable. Dictated by... Yvon Luke/ocnstanza TD: 07/11/2017 01:44 JOB #: [id number] Unit #: [id number] #: [id number] Patient: EDIL VICKERS HISTORY AND PHYSICAL Page 1 of 1 X JONH MALLORY APRN X HISTORY AND PHYSICAL
--- NOTE | ~2017-07-09 | CO ---
Unit #: [id number] #: [id number] Patient: EDIL VICKERS [id number] [facility] [address] [place] [address] [id number] I MR#: [id number] NAME: EDIL VICKERS ROOM: P207 Age: 41 Sex: M Admission Date: 07/09/2017 : 1975 Attending Physician: Micah Lennon M.D. Primary Care Physician: Primary Care Physician No Consultation Date: 07/09/2017 CONSULTATION REPORT Ordering provider is Dr. Lennon. REASON FOR CONSULTATION 1. UTI. 2. Abscess. 3. Rash. SUBJECTIVE The patient was restrained and sedated at time of assessment. Per nursing, on his last admission, he was diagnosed with a urinary tract infection and prescribed antibiotics; however, when he left, he discontinued them. His culture came back after discharge, which was noted to be negative. Per nursing on skin assessment, they also noticed a rash on his right knee and an abscess on his left leg. OBJECTIVE Approximately 1 to 2 cm abscess noted on the patient's left lower leg. There is mild induration and appeared to be healing. No drainage was noted. No heat or erythema. On the patient's right knee, there appears to be an abrasion. It is unclear with what this is from. ASSESSMENT 1. Bacteriuria. 2. Left leg abscess. 3. Abrasion. PLAN To do Bactrim for 10 days to cover both for urinary issues and for any MRSA and abscess. Dictated by... Yvon Luke/bobby TD: 07/10/2017 17:57 JOB #: [id number] Unit #: [id number] #: [id number] Patient: EDIL VICKERS CONSULTATION REPORT Page 1 of 1 X JONH MALLORY APRN X CONSULTATION REPORT
--- NOTE | ~2017-07-09 | DS ---
Unit #: [id number] #: [id number] Patient: EDIL VICKERS [id number] [facility] [address] [place] [address] [id number] MR#: [id number] NAME: EDIL VICKERS ROOM: [facility] Age: 41 Sex: M Admission Date: 07/09/2017 : 1975 Discharge Date: 07/11/2017 Attending Physician: Micah Lennon M.D. Primary Care Physician: Primary Care Physician No DISCHARGE SUMMARY REASON FOR ADMISSION Suicidal ideation. DIAGNOSTIC STUDIES Laboratory data, urine drug screen positive for amphetamine. HOSPITAL COURSE The patient was admitted to the inpatient unit on July 09, and discharged on 07/11/17. The patient was treated on the inpatient unit with group therapy, individual therapy, medication management, and chemical dependency group. The patient was responsive to treatment, showed improvement, treated with the Zyprexa 10 mg at bedtime. The patient was subsequently discharged with the plan to follow up in outpatient program. DISCHARGE DIAGNOSES Psychiatric: Kent I Major depressive disorder, recurrent, severe, F33.2. Amphetamine use disorder, severe, F15.20. Psychosis, NOS, F29.0. Kent II Deferred. Kent III History of hepatitis C. Kent IV Psychosocial stressors. Kent V INSTRUCTIONS TO PATIENT The patient is to follow up in outpatient clinic as well as healthcare social worker. DISCHARGE MEDICATIONS Zyprexa 10 mg at bedtime for mood stabilization CONDITION AT DISCHARGE The patient pleasant and cooperative, denied any psychotic symptoms or any suicidal ideation. PROGNOSIS Guarded. DIET AND ACTIVITY As tolerated. Unit #: [id number] #: [id number] Patient: EDIL VICKERS Dictated by... Brigette Rivera/kayli TD: 07/12/2017 11:43 JOB #: [id number] DISCHARGE SUMMARY Page 1 of 1 X Micah Lennon MD X DISCHARGE SUMMARY
[2017-07-10 12:56] LABS: BASOPHIL% 0.6 % (0-2.5); EOSINOPHIL# 0.4 X10e3 (0-0.7); EOSINOPHIL% 6.9 % (0.0-7.0); HEMATOCRIT 43.3 % (38.0-50.0); HEMOGLOBIN 14.2 gm/dL (13.0-16.0); LYMPHOCYTE# 2.4 X10e3 (1.0-3.5); LYMPHOCYTE% 45.3 % (17.0-45.0); MEAN CELL VOLUME 92.7 FL (83-96); MEAN CORPUSCULAR HEMOGLOBIN 30.3 PG (28-34); MEAN CORPUSCULAR HGB CONC 32.7 g/dL (30-36); MEAN PLATELET VOLUME 10.7 FL (6.5-11.5); MONOCYTE# 0.4 X10e3 (0-1.0); MONOCYTE% 7.8 % (3.0-12.0); NEUTROPHIL# 2.1 X10e3 (1.5-7.1); NEUTROPHIL% 39.4 % (40-75); PLATELET COUNT 203 X10e3 (140-420); RED BLOOD COUNT 4.67 X10e (3.90-5.60); RED CELL DISTRIBUTION WIDTH 13.9 % (11.0-15.5); WHITE BLOOD COUNT 5.4 X10e3 (4.0-10.5)
[2017-07-10 13:19] LABS: DIFF IND NO
[2017-07-10 13:20] LABS: ALBUMIN SERUM 3.3 g/dL (3.5-5.0); BILIRUBIN,TOTAL 0.5 mg/dL (0.2-2.0); BUN/CREATININE RATIO 18.33; CALCIUM SERUM 8.9 mg/dL (8.4-10.2); CREATININE SERUM 0.6 mg/dL (0.6-1.4); GLOM FILT RATE Estimated 125.8 mL/min (>60); PROTEIN TOTAL SERUM 5.9 g/dL (6.0-8.3)
[2017-07-11 12:57] LABS: URINE APPEARANCE CLEAR; URINE BILIRUBIN NEG (NEG); URINE BLOOD NEG (NEG); URINE COLOR YELLOW; URINE GLUCOSE NEG (NEG); URINE KETONE NEG (NEG); URINE LEUKOCYTE ESTERASE NEG (NEG); URINE NITRATE NEG (NEG); URINE PH 7.5 (5-8); URINE PROTEIN NEG (NEG); URINE SPECIFIC GRAVITY 1.012 (1.003-1.035); URINE UROBILINOGEN 0.2 MG/DL (NEG)
[2017-07-11 13:05] LABS: AMPHETAMINE POS (NEG); BARBITURATES NEG (NEG); BENZODIAZEPINES NEG (NEG); COCAINE NEG (NEG); MARIJUANA NEG (NEG); OPIATES NEG (NEG); TRICYCLIC ANTIDEPRESSANTS NEG (NEG); U METHADONE NEG (NEG)
== END 2017-07-11 10:39 | DRG 885 ==
LOC: P2S 07:45
PROVIDERS: Psychiatry & Neurology Psychiatry
DX: F33.2 Major depressive disorder, recurrent severe without psychotic features (principal); F15.20 Other stimulant dependence, uncomplicated; R45.851 Suicidal ideations; L02.416 Cutaneous abscess of left lower limb; F29 Unspecified psychosis not due to a substance or known physiological condition; Z86.19 Personal history of other infectious and parasitic diseases; F11.10 Opioid abuse, uncomplicated; M54.9 Dorsalgia, unspecified; R82.71 Bacteriuria; S80.211A Abrasion, right knee, initial encounter; X58.XXXA Exposure to other specified factors, initial encounter
CPT/HCPCS: 80053; 80307; 81003; 85025; J0515; J1630; J2060

== ENCOUNTER 2017-07-12 04:00 | Inpatient (IN) | payer OTHER ==
[~2017-07-12] VITALS: Ht 175.3 cm; Wt 74.8 kg
--- NOTE | ~2017-07-12 | DS ---
Unit #: [id number] #: [id number] Patient: EDIL VICKERS [id number] [facility] [address] [place] [address] [id number] MR#: [id number] NAME: EDIL VICKERS ROOM: [facility] Age: 41 Sex: M Admission Date: 07/12/2017 : 1975 Discharge Date: 07/14/2017 Attending Physician: Micah Lennon M.D. Primary Care Physician: Primary Care Physician No DISCHARGE SUMMARY REASON FOR ADMISSION Psychosis, depression. DIAGNOSTIC STUDIES LABORATORY DATA: Urine drug screen positive for amphetamine. HOSPITAL COURSE The patient was admitted to the inpatient unit on July 12, and discharged on 07/14/17. The patient was treated with group therapy, individual therapy, medication management. The patient was responsive to treatment, showed improvement. Subsequently patient was discharged with the plan to follow up in outpatient program. DISCHARGE MEDICATIONS Zyprexa 10 mg at bedtime for psychosis. DISCHARGE DIAGNOSES Psychiatric: Lawrence I Major depressive disorder, recurrent, severe, F33.2. Amphetamine use disorder, severe, F15.20. Psychosis, NOS, F29.0. Lawrence II Deferred. Lawrence III History of hepatitis C. Chronic back pain. Lawrence IV Psychosocial stressors. INSTRUCTIONS TO PATIENT The patient is to follow up in outpatient clinic as well as professor of social work. CONDITION ON DISCHARGE The patient pleasant and cooperative, denied any psychotic symptoms or any suicidal ideation. PROGNOSIS Guarded. DIET AND ACTIVITY As tolerated. Unit #: [id number] #: [id number] Patient: EDIL VICKERS Dictated by... Brigette Rivera/constanza TD: 07/17/2017 01:33 JOB #: [id number] DISCHARGE SUMMARY Page 1 of 1 X Micah Lennon MD X DISCHARGE SUMMARY
--- NOTE | ~2017-07-12 | HP ---
Unit #: [id number] #: [id number] Patient: EDIL VICKERS [id number] [place] [address] [id number] I MR#: [id number] NAME: EDIL VICKERS ROOM: P185 Age: 41 Sex: M Admission Date: 07/12/2017 : 1975 Attending Physician: Micah Lennon M.D. Admitting Physician: Micah Lennon M.D. Primary Care Physician: Primary Care Physician No HISTORY AND PHYSICAL HISTORY OF PRESENT ILLNESS Edil is a 41 year old admitted to [facility] because of his continued drug use which includes IV methamphetamine. He was just discharged from this facility after treatment for the same. PAST MEDICAL HISTORY 1. Long history of illicit substance abuse to include IV meth. 2. Hepatitis C. PAST SURGICAL HISTORY Nothing reported. ALLERGIES No known drug allergies. SOCIAL HISTORY Smokes one pack per day. Denies alcohol. Admits to a long history of illicit substance abuse. FAMILY HISTORY Medically noncontributory. REVIEW OF SYSTEMS CONSTITUTIONAL: No fever or chills. HEENT: Denies any sore throat, ear pain or runny nose. CARDIOVASCULAR: Denies chest pain, irregular heart rhythm or palpitations. CHEST: Denies shortness of breath or cough. No hemoptysis. GASTROINTESTINAL: Denies nausea, vomiting, diarrhea or chronic constipation. ENDOCRINE: Denies history of increased thirst or urination. No recent significant weight loss or gain. GENITOURINARY: Denies dysuria, frequency, or hematuria. SKIN: Denies any rashes. HEMATOLOGIC: Denies history of increased bleeding or bruising. MUSCULOSKELETAL: Denies any hot, swollen joints. No generalized muscle pain. NEUROLOGIC: Denies problems with vision or speech. No frequent, severe headaches. No numbness, tingling or weakness in any extremities. Denies loss of bladder or bowel control. CURRENT MEDICATIONS 1. Zyprexa 10 mg q.h.s. Unit #: [id number] #: [id number] Patient: EDIL VICKERS 2. Vistaril 50 mg q.6 hours p.r.n. 3. Trazodone p.r.n. 4. Milk of Magnesia p.r.n. 5. Maalox p.r.n. 6. Tylenol p.r.n. 7. Nicotine patch 14 mg q day PHYSICAL EXAMINATION GENERAL: Alert, well-nourished, in no apparent distress. VITAL SIGNS: Blood pressure 116/72, heart rate 70, respirations 16, temperature 98.6. WEIGHT: 165. HEIGHT: 5 foot 9 inches. SKIN: Warm and dry without rash or lesion. HEENT: Normocephalic. TMs not viewed. Oral and nasal passages clear. Conjunctivae clear. Pupils equal, round and reactive to light and accommodation. Extraocular movements intact. NECK: Supple without lymphadenopathy or thyromegaly. HEART: Regular rate and rhythm without murmur. LUNGS: Clear. ABDOMEN: Soft, nontender. : Not done. EXTREMITIES: No evidence of cyanosis, clubbing or edema. Moves all extremities without focal deficit. NEUROLOGICAL: Grossly within normal limits. Cranial Nerves: II: Visual rand are intact. III, IV AND : Extraocular movements are intact. Pupils are equal, round and reactive to light. V: Facial sensation is grossly normal. VII: Facial movements and expression are normal. VIII: Auditory acuity grossly intact. IX, X: Uvula is midline. Phonation is normal. XI: Patient shrugs shoulders and turns head normally. XII: Tongue protrudes in the midline. Sensory and Motor Function: Sensory and motor sensation is grossly normal. Motor: moves all extremities well. Coordination: Gait is normal. Deep Tendon Reflexes: Intact. IMPRESSION Psychiatric admission. RECOMMENDATIONS PSYCHIATRIC: Per psychiatrist. MEDICAL: I see no contraindications to participating in facility's activities. MEDICAL PROGNOSIS Good. MEDICAL CONDITION Stable. Dictated by... Linda Cunningham P.A.-C. for Daina Stubbs M.D. Unit #: [id number] #: [id number] Patient: EDIL VICKERS CARMEN/constanza TD: 07/12/2017 20:48 JOB #: [id number] HISTORY AND PHYSICAL Page 1 of 1 X Linda Cunningham HISTORY AND PHYSICAL
--- NOTE | ~2017-07-12 | PN ---
Unit #: [id number] #: [id number] Patient: EDIL VICKERS [id number] [facility] [address] [place] [address] [id number] MR#: [id number] NAME: EDIL VICKERS ROOM: 85 Age: 41 Sex: M Admission Date: 07/12/2017 : 1975 Attending Physician: Micah Lennon M.D. Admitting Physician: Micah Lennon M.D. Primary Care Physician: Primary Care Physician No LEROY PROGRESS NOTES DATE OF SERVICE 07/13/2017 DISCUSSION Edil is a 41-year-old male. Patient seen on 07/13/2017. Patient was reported having suicidal ideation. Complete review of systems unremarkable. MENTAL STATUS EXAMINATION General appearance, patient dressed casually. Attention span and concentration fair. Oriented to time, place and person. Mood and affect sad, dysphoric, flat, withdrawn, isolative, guarded. Reported having suicidal thoughts. Complete review of systems unremarkable. Recent and remote memory poor. Insight and judgement poor. DIAGNOSIS 1. Major depressive disorder recurrent severe. 2. Amphetamine use disorder severe ASSESSMENT/PLAN Advise to continue with current medication and therapeutic protocol. If needed consider further adjustment of medication. Dictated by... Brigette Rivera/constanza TD: 07/14/2017 03:36 JOB #: [id number] [facility] PROGRESS NOTES Page 1 of 1 X Micah Lennon MD X PROGRESS NOTE
--- NOTE | ~2017-07-12 | PN ---
Unit #: [id number] #: [id number] Patient: EDIL VICKERS [id number] [facility] [address] [place] [address] [id number] I MR#: [id number] NAME: EDIL VICKERS ROOM: [facility] Age: 41 Sex: M Admission Date: 07/12/2017 : 1975 Attending Physician: Micah Lennon M.D. Admitting Physician: Micah Lennon M.D. Primary Care Physician: Primary Care Physician Lien HARKINS NOTES DATE OF SERVICE: 07/10/2017 DISCUSSION Mr. Edil Miller is a 41-year-old male, seen on 07/10/2017. The patient interviewed, chart reviewed, and obtained information from nursing staff on 07/10/2017. The patient was compliant and cooperative. Mood was labile, sad, dysphoric. The patient did not show any aggression. REVIEW OF SYSTEMS Complete review of systems unremarkable. MENTAL STATUS EXAMINATION General appearance; the patient dressed casually. Attention span and concentration, fair. Oriented in time, place, and person. Mood and affect, sad, dysphoric, flat. Speech, monotone. Thought process, concrete. Association, denied any thoughts of harming self or others. Recent and remote memory, poor. Insight and judgment, poor. DIAGNOSES 1. Bipolar mood disorder, not otherwise specified. 2. Psychosis, not otherwise specified. 3. Amphetamine use disorder, severe. ASSESSMENT AND PLAN Advised to discontinue Ativan and lower the dosage of Zyprexa to 10 mg at bedtime. If the patient continues to do well, plan to consider discharge this week. Dictated by... Brigette Rivera/bobby TD: 07/12/2017 03:16 JOB #: [id number] Unit #: [id number] #: [id number] Patient: EDIL VICKERS [place] NOTES Page 1 of 1 X Micah Lennon MD PROGRESS NOTE
--- NOTE | ~2017-07-12 | PA ---
Unit #: [id number] #: [id number] Patient: EDIL VICKERS [id number] [facility] [address] [place] [address] [id number] MR#: [id number] NAME: EDIL VICKERS ROOM: [facility] Age: 41 Sex: M Admission Date: 07/12/2017 : 1975 Date of Assessment: 07/12/2017 Attending Physician: Micah Lennon M.D. Admitting Physician: Micah Lennon M.D. Primary Care Physician: Primary Care Physician No PSYCHIATRIC ASSESSMENT INFORMANTS The patient reliability, fair informant and chart reliability, good. CHIEF COMPLAINT Suicidal ideation and amphetamine abuse. HISTORY OF PRESENT ILLNESS Mr. Edil Vickers is a 41-year-old male, presented with the above-mentioned complaint. The patient was recently discharged on 07/11/2017, presented with the above-mentioned complaint. The patient reported that "I left treatment too soon. I thought I was ready, but I was not. I was having thoughts of killing myself again. I will kill myself by overdose. I tried tonight, but I did not have the money, I did not get paid until Monday." The patient reported that "I need some help or I'm going to ." The patient reports he lives by himself, feeling of hopelessness and worthlessness. History of previous inpatient treatment for suicidal ideation and detox at [facility] in 07/2017. The patient has a poor support system. Reported depressive symptom. Reported using 1 to 1.5 g of meth and 1 point of heroin. The patient reported needing inpatient admission at this time for psychiatric stabilization. PAST PSYCHIATRIC HISTORY Remarkable for history of previous treatment. Last admitted on 07/09/2017. FAMILY HISTORY AND SOCIAL HISTORY The patient has a poor support system. No history of abuse. No legal charges. MEDICAL HISTORY Remarkable for back pain and hepatitis C. Musculoskeletal; muscle strength and tone, no atrophy or abnormal movement. Gait normal. MEDICATION HISTORY Zyprexa 10 mg daily. ALLERGIES No known drug allergies. SUBSTANCE ABUSE HISTORY The patient reported tobacco use, age of onset 14; crack cocaine; occasional LSD, age of onset 25; opioid, 37; and amphetamine, 37. The patient denied any blackout, HIV, hepatitis, withdrawal symptom, or any IV Unit #: [id number] #: [id number] Patient: EDIL VICKERS drug use. The patient reported drug abuse caused problem with relationship, problem with long term, and money issue, but currently denied any ongoing legal problem. The patient reported history of bipolar disorder and substance abuse run in the family. REVIEW OF SYSTEMS HEENT: Eyes, clear. Ears, nose, mouth, and throat; clear. CARDIOVASCULAR: Unremarkable. RESPIRATORY: Unremarkable. GI: Unremarkable. : Unremarkable. SKIN: Unremarkable. LYMPH NODE: Unremarkable. NEUROLOGIC: Unremarkable. ENDOCRINE: Unremarkable. HEMATOLOGIC: Unremarkable. ALLERGIC/IMMUNOLOGIC: Unremarkable. MUSCULOSKELETAL: Muscle strength and tone, no atrophy or abnormal movement. Gait normal. MENTAL STATUS EXAMINATION CONSTITUTIONAL: Measurement of vital signs; temperature 98.0, heart rate 70, respiratory rate 28, oxygen saturation 99%, and blood pressure 116/73. GENERAL APPEARANCE: The patient dressed casually. The patient did not show any facial deformity. MUSCULOSKELETAL: Please see above. PSYCHIATRIC EXAMINATION Description of speech; regular rate, normal volume, normal articulation, coherent, and spontaneous. Description of thought process, goal directed. Description of association, intact. Description of abnormal psychotic thinking; the patient denied any hallucination, delusions, mood lability, or suicidal ideation. Description of the patient's judgment: Concerning everyday activity, poor. Social situation, poor. Concerning psychiatric condition, poor. Complete mental status examination; oriented in time, place, and person. Recent and remote memory, fair. Attention span and concentration, fair. Language, able to name object and repeat phrases. Fund of knowledge, aware of current event and passive vocabulary intact. Mood and affect, sad and dysphoric. Insight and judgment, fair to poor. ASSETS AND LIABILITIES Assets, the patient is articulate and able to take care of his ADL. Liability; history of depression, substance abuse, and suicidal ideation. ADMITTING DIAGNOSES Psychiatric: Major depressive disorder, recurrent, severe, F33.2; amphetamine use disorder, F15.20; and psychosis, not otherwise specified, F29.0. Secondary diagnosis: Deferred. Medical diagnoses: History of hepatitis C and chronic back pain. Stressors: Psychosocial stressors. PSYCHIATRIC PLAN AND TREATMENT GOAL AND DISCHARGE PLAN Unit #: [id number] #: [id number] Patient: EDIL VICKERS 1. Advised to admit the patient on the inpatient unit. Provide safe, supportive, and structured environment. 2. Ordered labs; CBC, CMP, UA, and UDS. 3. Precaution for aggression and self-harm. 4. Recommending to resume home medication. Advised Vistaril 50 mg q.6 hours p.r.n. for severe anxiety. Treatment goal to attain euthymic mood, gain insight into his problem, and learn coping skills. The patient to attend all the programing. If needed, consider further adjustment of medication. DISCHARGE PLAN Plan to stabilize the patient and consider followup in outpatient program. ESTIMATED LENGTH OF STAY 5 days. Dictated by... Micah Lennon M.D. MELANY/bobby TD: 07/12/2017 19:25 JOB #: [id number] PSYCHIATRIC ASSESSMENT Page 1 of 1 X Micah Lennon MD X PSYCHIATRIC ASSESSMENT
== END 2017-07-14 13:36 | DRG 885 ==
LOC: P1E 05:53
DX: F33.2 Major depressive disorder, recurrent severe without psychotic features (principal); F15.20 Other stimulant dependence, uncomplicated; F29 Unspecified psychosis not due to a substance or known physiological condition; B19.20 Unspecified viral hepatitis C without hepatic coma; F41.9 Anxiety disorder, unspecified; M54.9 Dorsalgia, unspecified; G89.29 Other chronic pain; F17.210 Nicotine dependence, cigarettes, uncomplicated